=== PATIENT | male | born 1990 | race African-American/Black ===

== ENCOUNTER 2017-09-24 07:21 | Emergency (ER) | payer MEDICAID ==
[~2017-09-24] VITALS: Ht 172.7 cm; Wt 57.0 kg
[2017-09-24] MEDS ORDERED: ONDANSETRON 2MG/ML, 2ML ONE (07:47)
[2017-09-24] MEDS ORDERED: MORPHINE SULFATE 4 MG/ML, 1ML ONE ×2 (07:47→08:39)
[2017-09-24] MEDS ORDERED: SODIUM CHLORIDE 0.9% 1,000ML IVBOLUS ONE (08:00)
[2017-09-24] MEDS ORDERED: SODIUM CHLORIDE FLUSH 10ML SYR IVF ONE (08:00)
[2017-09-24] MEDS ORDERED: ONDANSETRON 2MG/ML, 2ML IVPush ONE (08:00)
[2017-09-24] MEDS: MORPHINE SULFATE 4 MG/ML, 1ML IVPush PRN ×2 (08:04→08:40)
[2017-09-24 08:23] LABS: HEMATOCRIT 48.9 % (39.2-51.8); HEMOGLOBIN 16.3 g/dL (13.7-18.0); WHITE BLOOD COUNT 18.6 x10^3/uL (3.4-10)
[2017-09-24 08:27] LABS: PATH.CAST-FLAG NOT PRESENT; SPERM-FLAG NOT PRESENT; SRC-FLAG NOT PRESENT; XTAL-FLAG NOT PRESENT; YLC-FLAG NOT PRESENT
[2017-09-24 08:31] LABS: ASPARTATE AMINO TRANSFERASE 8 U/L (15-37); BLOOD UREA NITROGEN 15 mg/dL (7-18)
[2017-09-24] MEDS ORDERED: OMNIPAQUE 350 MG/ML, 100ML BOTTLE ONE (09:01)
[2017-09-24] MEDS ORDERED: CEFTRIAXONE PMX 1GM/50ML 50 ML ONE (10:28)
[2017-09-24] MEDS ORDERED: CEFTRIAXONE PMX 1GM/50ML 50 ML IV ONE (10:30)
[2017-09-24 10:31] VITALS: BP 115/57
== END 2017-09-24 11:18 | disposition home or self-care (01) ==
LOC: ED 09:14
DX: R10.84 Generalized abdominal pain (principal); J15.9 Unspecified bacterial pneumonia
CPT/HCPCS: 36415; 71010; 74177; 80053; 81001; 83690; 85025; 96361; 96374; 96375; 96376; 99285; J0696; J2405; J7030; Q9967

== ENCOUNTER 2017-09-27 13:21 | Emergency (ER) | payer MEDICAID ==
[~2017-09-27] VITALS: Ht 172.7 cm; Wt 58.9 kg
[2017-09-27] MEDS ORDERED: IBUPROFEN 200 MG TABLET ONE (16:30)
[2017-09-27] MEDS ORDERED: IBUPROFEN 200 MG TABLET PO ONE (16:30)
[2017-09-27] MEDS ORDERED: LORazepam 1MG TABLET PO ONE (16:30)
[2017-09-27] MEDS ORDERED: LORazepam 1MG TABLET ONE (16:31)
[2017-09-27 16:39] VITALS: BP 127/78
== END 2017-09-27 16:41 | disposition home or self-care (01) ==
LOC: ED 16:11
DX: J40 Bronchitis, not specified as acute or chronic (principal)
CPT/HCPCS: 99283